=== PATIENT | female | born 1970 | race Caucasian/White ===

== ENCOUNTER 2017-02-24 00:11 | Emergency (ER) | payer MEDICAID ==
--- NOTE | 2017-02-24 00:55 | ED Physician Documentation ---
PD HPI UPPER EXT INJURY - Stated complaint Stated Complaint: R HAND PX - Chief complaint Chief Complaint: Ext Problem - History obtained from History obtained from: Patient - History of Present Illness Location: Right, Hand Type of injury: Fall Where injury occurred: Street Timing - onset: How many days ago (3) Timing - details: Abrupt onset Pain level now: 7 Improved by: Rest Worsened by: Moving, Palpating Associated symptoms: Swelling, Discolored. No: Weakness, Numbness Recently seen: Not recently seen - Additonal information Additional information: fell three days ago while walking on a curb, her ankle slipped on the curb's edge, causing her ankle to roll (although she denies any ankle or foot pain), which then caused her to fall; she fell onto outstretched RUE and presents due to steadily increasing right hand pain and swelling Review of Systems Musculoskeletal: reports: Extremity pain, Extremity swelling Neurologic: denies: Focal weakness, Numbness PD PAST MEDICAL HISTORY - Past Medical History Past Medical History: Yes Respiratory: Asthma - Past Surgical History Past Surgical History: Yes HEENT: Cataracts - Present Medications Home Medications: Ambulatory Orders Medication Instructions Recorded Confirmed Budesonide/Formoterol 80/4.5 1 puffs INH BID 04/26/14 02/24/17 [Symbicort] Hydrocodone/Acetaminophen 1 - 2 each PO Q6HR PRN #14 tablet 02/24/17 [Hydrocodone-Acetamin 5-325 mg] - Allergies Allergies/Adverse Reactions: Allergies Allergy/AdvReac Type Severity Reaction Status Date / Time codeine Allergy Nausea Verified 02/24/17 00:17 - Social History Does the pt smoke?: No Smoking Status: Never smoker Does the pt drink ETOH?: No Does the pt have substance abuse?: No - POLST Patient has POLST: No PD ED PE NORMAL - Vitals Vital signs reviewed: Yes - General General: Alert and oriented X 3, No acute distress, Well developed/nourished PD ED PE EXPANDED - Extremities Extremities: Other (swelling, tenderness, echymosis right thenar eminence. There is also faint echymosis over volar aspect of wrist without tenderness. There is no "snuff box" tenderness. brisk capillary refill in all five digits of the right hand. Limited ROM right thumb due to pain) Results - Vitals Vitals: Vital Signs - 24 hr 02/24/17 02/24/17 00:13 02:14 Temperature 36.1 C L 36.6 C Heart Rate 86 80 Respiratory 16 16 Rate Blood Pressure 142/94 H 118/76 O2 Saturation 98 96 Oxygen O2 Source Room air - Rads (name of study) right hand xrays Radiology: Prelim report reviewed, See rad report PD MEDICAL DECISION MAKING - ED course Complexity details: reviewed results, re-evaluated patient, considered differential, d/w patient Departure - Departure Disposition: 01 Home, Self Care Clinical Impression: Hand sprain Condition: Good Instructions: ED Sprain Hand Follow-Up: Any Duque MD [Primary Care Provider] - Prescriptions: Hydrocodone/Acetaminophen [Hydrocodone-Acetamin 5-325 mg] 1 - 2 each PO Q6HR PRN #14 tablet PRN Reason: Pain Discharge Date/Time: 02/24/17 02:19
--- NOTE | 2017-02-24 01:24 | XRAY Preliminary Report ---
Exam: XR HAND 3 VIEW RT IMPRESSION: 1. No acute fracture or dislocation seen. [facility] SITE ID: [id number]
--- NOTE | 2017-02-24 01:27 | XRAY Report ---
EXAM: RIGHT HAND RADIOGRAPHY EXAM DATE: 02/24/2017 01:18 AM. CLINICAL HISTORY: Injury, pain right thenar eminence. COMPARISON: None. TECHNIQUE: 3 views. FINDINGS: Bones: No acute fracture seen. Joints: No dislocation. Joint spaces appear preserved. Soft Tissues: Mild soft tissue swelling. IMPRESSION: 1. No acute fracture or dislocation seen. [facility] Referring Provider Line: [phone] SITE ID: [id number]
[2017-02-24 02:19] VITALS: BP 118/76
== END 2017-02-24 02:19 | disposition home or self-care (01) ==
LOC: ED 00:11
DX: S63.91XA Sprain of unspecified part of right wrist and hand, initial encounter (principal); W10.1XXA Fall (on)(from) sidewalk curb, initial encounter; Y93.01 Activity, walking, marching and hiking; Y92.410 Unspecified street and highway as the place of occurrence of the external cause
CPT/HCPCS: 99283

== ENCOUNTER 2017-06-17 17:48 | Emergency (ER) | payer BC, MEDICAID, OTHER ==
--- NOTE | 2017-06-17 18:47 | ED Physician Documentation ---
History of Present Illness - Stated complaint Stated Complaint: MOUTH INFECTION - Chief complaint Chief Complaint: Heent - History obtained from History obtained from: Patient - History of Present Illness Timing: Other (She has had waxing and waning oral lesions on the buccal mucosa and tongue, always on the right side for the last 2 months that are painful. No hair or joint issues no autoimmune diseases. No fatigue or weight loss.) Review of Systems Constitutional: denies: Fever, Chills, Myalgias, Fatigue Nose: denies: Rhinorrhea / runny nose, Congestion Throat: reports: Oral lesions / sores. denies: Sore throat PD PAST MEDICAL HISTORY - Past Medical History Past Medical History: Yes Respiratory: Asthma - Past Surgical History Past Surgical History: Yes HEENT: Cataracts - Present Medications Home Medications: Ambulatory Orders Medication Instructions Recorded Confirmed Budesonide/Formoterol 80/4.5 1 puffs INH BID 04/26/14 02/24/17 [Symbicort] Custom Mouthwash 5 ml MM QID #250 ml 06/17/17 - Allergies Allergies/Adverse Reactions: Allergies Allergy/AdvReac Type Severity Reaction Status Date / Time codeine Allergy Nausea Verified 06/17/17 18:06 - Social History Does the pt smoke?: No Smoking Status: Never smoker Does the pt drink ETOH?: No Does the pt have substance abuse?: No - Immunizations Immunizations are current?: Yes - POLST Patient has POLST: No PD ED PE NORMAL - Vitals Vital signs reviewed: Yes - General General: Alert and oriented X 3, No acute distress - HEENT HEENT: PERRL, EOMI, Other (There are broad-based oral ulcers on the right lingual mucosa and the buccal mucosa on the right side, also a little bit on the lateral gingival mucosa.) - Neck Neck: Supple, no meningeal sign, No bony TTP - Neuro Neuro: Alert and oriented X 3, Normal speech - Psych Psych: Normal mood, Normal affect Results - Vitals Vitals: Vital Signs - 24 hr 06/17/17 18:03 Temperature 36.6 C Heart Rate 105 H Respiratory 18 Rate Blood Pressure 134/90 H O2 Saturation 98 Oxygen O2 Source Room air Departure - Departure Disposition: 01 Home, Self Care Clinical Impression: Recurrent oral ulcers Condition: Good Record reviewed to determine appropriate education?: Yes Instructions: ED Stomatitis Ch Prescriptions: Custom Mouthwash 5 ml MM QID #250 ml Comments: If not better in 1 week, call Dr. Del Beckman in [place] for consideration for biopsy, his phone number is [phone]. Your blood pressure was elevated today on check into the emergency department. This does not mean that you have hypertension, it is a common phenomenon to come to the emergency department and have elevated blood pressure. I recommend that you see your primary care physician within the week to have it rechecked when you are feeling better.
[2017-06-17 18:59] VITALS: BP 129/91
== END 2017-06-17 19:02 | disposition home or self-care (01) ==
LOC: ED 17:48
DX: K12.1 Other forms of stomatitis (principal); R03.0 Elevated blood-pressure reading, without diagnosis of hypertension
CPT/HCPCS: 99283

== ENCOUNTER 2017-06-27 12:23 | Outpatient (CLI) | payer OTHER ==
[2017-06-27 19:22] LABS: BASOPHILS % (AUTO) 0.8 %; EOSINOPHILS # (AUTO) 0.3 10^3/uL (0.0-0.7); EOSINOPHILS % (AUTO) 5.2 %; HGB - HEMOGLOBIN 13.3 g/dL (12.0-16.0); LYMPHOCYTES # (AUTO) 1.4 10^3/uL (1.5-3.5); LYMPHOCYTES % (AUTO) 22.8 %; MEAN CORPUSCULAR HEMOGLOBIN 28.1 pg (27.0-31.0); MEAN CORPUSCULAR HGB CONC 32.5 g/dL (32.0-36.0); MEAN CORPUSCULAR VOLUME 86.6 fL (81.0-99.0); MEAN PLATELET VOLUME 9.1 fL (7.9-10.8); MONOCYTES # (AUTO) 0.4 10^3/uL (0.0-1.0); MONOCYTES % (AUTO) 7.4 %; NEUTROPHILS # (AUTO) 3.8 10^3/uL (1.5-6.6); NEUTROPHILS % (AUTO) 63.8 %; PLT - PLATELET COUNT 200 10^3/uL (130-450); RED BLOOD COUNT 4.74 10^6/uL (4.20-5.40); RED CELL DISTRIBUTION WIDTH 14.3 % (12.0-15.0)
[2017-06-27 19:51] LABS: ALBUMIN 3.9 g/dL (3.2-5.5); ALBUMIN/GLOBULIN RATIO 1.1 (1.0-2.2); ALKALINE PHOSPHATASE 75 IU/L (42-121); ALT ALANINE AMINOTRANSFERASE 27 IU/L (10-60); AST ASPARTATE AMINOTRANSFERASE 24 IU/L (10-42); BILIRUBIN,TOTAL 0.7 mg/dL (0.2-1.0); BUN - BLOOD UREA NITROGEN 12 mg/dL (6-20); CALCIUM 9.1 mg/dL (8.5-10.3); CARBON DIOXIDE - CO2 28 mmol/L (21-32); CHLORIDE 105 mmol/L (101-111); CHOL/HDL RATIO 2.7 (<4.4); CHOLESTEROL 150 mg/dL; CREATININE 0.8 mg/dL (0.4-1.0); GFR - MDRD 76 (>89); GLUCOSE 95 mg/dL (70-100); HDL CHOLESTEROL 56 mg/dL; LDL CHOLESTEROL,CALCULATED 81 mg/dL; LDL/HDL RATIO 1.4 (<4.4); SODIUM 138 mmol/L (135-145); TOTAL PROTEIN 7.4 g/dL (6.7-8.2); VLDL CHOLESTEROL 13 mg/dL
[2017-06-27 19:53] LABS: HEMOGLOBIN A1C 0.57 g/dL; HEMOGLOBIN A1C % 5.6 % (4.6-6.2)
== END 2017-06-27 12:24 | disposition home or self-care (01) ==
LOC: LAB.WCP 12:23
PROVIDERS: ATTEND Physician Assistant
DX: E66.9 Obesity, unspecified (principal); R53.83 Other fatigue
CPT/HCPCS: 36415; 80053; 80061; 83036; 83721; 84443; 85025

== ENCOUNTER 2017-08-30 07:08 | Day surgery (SDC) | payer OTHER ==
[~2017-08-30 07:08] MED LIST: BRIMONIDINE 0.2% OPHTH DROPS 5 ML ONE; BSS/LIDOCAINE/EPINEPHRINE 1 ML SYRINGE ONE; CYCLOPENTOLATE 1% OPHTH DROPS 2 ML ONE; EPINEPHrine 1 MG/ML AMP ONE; KETOROLAC 0.45% OPHTH DROPS ONE; PHENYLEPHRINE 2.5% OPHTH 2 ML DROPS ONE; PROPARACAINE 0.5% OPHTH DROPS 15 ML ONE; TIMOLOL 0.5% OPHTH DROPS ONE; TRIAMCIN/MOXIFLOX OPHTHALMIC 0.6 ML VIAL IO ONE; VANCOMYCIN OPHTHALMI 8MG/0.8ML 8 MG/0.8 ML SYRINGE IO ONE
[2017-08-30] MEDS ORDERED: LACTATED RINGERS 500 ML IV ONE (07:40)
[2017-08-30] MEDS ORDERED: KETOROLAC 0.45% OPHTH DROPS LEFTEYE ONE (07:45)
[2017-08-30] MEDS ORDERED: PHENYLEPHRINE 2.5% OPHTH 2 ML DROPS LEFTEYE ONE (07:45)
[2017-08-30] MEDS ORDERED: PROPARACAINE 0.5% OPHTH DROPS 15 ML LEFTEYE ONE (07:45)
[2017-08-30] MEDS ORDERED: CYCLOPENTOLATE 1% OPHTH DROPS 2 ML LEFTEYE ONE (07:45)
[2017-08-30] MEDS ORDERED: MIDAZOLAM 2 MG/2 ML VIAL IVP ONE (08:45)
[2017-08-30 09:03] VITALS: BP 134/89
--- NOTE | 2017-08-30 13:55 | OPERATIVE REPORT ---
DATE OF SERVICE: 08/30/2017 Physician: Vin Carpio MD PREOPERATIVE DIAGNOSIS: Visually significant cataract, left eye. Cataract surgery was performed on her right eye in May [address] Chavez in [place]. POSTOPERATIVE DIAGNOSIS: Visually significant cataract, left eye. PROCEDURE: Phacoemulsification with posterior chamber intraocular lens implant, left eye. SURGEON: Vin Carpio MD. ANESTHESIA: Monitored anesthesia care. COMPLICATIONS: None. OPERATIVE INDICATIONS: This is a 47-year-old woman with progressive vision loss in the left eye due to trace nuclear sclerotic, 1+ cortical, and 3+ posterior subcapsular cataract. Best corrected visual acuity was 20/70 with count fingers at 4 feet with glare in the left eye. INDICATIONS FOR SURGERY 1. Overall decrease in vision. 2. Difficulty seeing words on a computer screen. 3. Difficulty reading. 4. Difficulty seeing words, closed captions, and game scores on TV. 5. Difficulty seeing street signs. 6. Difficulty driving in low light or at night. 7. Difficulty driving at night because of the headlights from other vehicles. 8. Difficulty with glare or bright lights in any situation. 9. Overall, she says she just has had a very significant vision loss in her left eye. INFORMED CONSENT: She was consented at length concerning risks and benefits of cataract surgery, after which she expressed a desire to proceed with surgery. OPERATIVE PROCEDURE: The patient was taken to OR #3 and placed under monitored anesthesia care. A surgical timeout was conducted confirming correct patient, correct procedure, and correct surgical site. She was given topical anesthesia, then prepped and draped in usual sterile fashion. The eye was entered at the 6 and 3-o'clock positions. Intracameral Shugarcaine was injected into the anterior chamber, followed by Viscoat. A continuous-tear curvilinear capsulorrhexis was performed. The nucleus was hydrodissected and phacoemulsified. The cortex was evacuated using automated infusion aspiration. Provisc was injected in the capsular bag, and a 22.5-diopter intraocular lens was inserted in the bag. Approximately 0.8 mL of a mixture of triamcinolone, moxifloxacin, and vancomycin was injected subconjunctivally in the superior quadrant for infection and inflammation prophylaxis. I and A was used to evacuate the viscoelastic materials. The eye was inflated to physiologic pressure using balanced salt solution and found to be watertight. Patient was taken from the operating room in good condition and given postop instructions. TD: 08/30/2017 09:07
== END 2017-08-30 07:09 | disposition home or self-care (01) ==
LOC: SDS 07:08
PROVIDERS: ATTEND Ophthalmology
PROC: 08RK3JZ Replacement of Left Lens with Synthetic Substitute, Percutaneous Approach (ICD-10-PCS; principal; 2017-08-30 08:30)
DX: H25.812 Combined forms of age-related cataract, left eye (principal); J45.909 Unspecified asthma, uncomplicated
CPT/HCPCS: 66984; A9270; J3490; V2632